=== PATIENT | male | born 2005 | race African-American/Black ===

== ENCOUNTER 2024-07-22 16:56 | Emergency (ER) | payer BC, MEDICAID ==
[2024-07-22] MEDS ORDERED: predniSONE 20 MG TAB ONE (18:06)
== END 2024-07-22 18:20 | disposition home or self-care (01) ==
LOC: CSHERS 16:56
DX: R04.2 Hemoptysis (principal); I10 Essential (primary) hypertension
CPT/HCPCS: 71045; J7512